=== PATIENT | male | born 1985 | race Caucasian/White ===

== ENCOUNTER → 2020-09-03 | Outpatient (CLI) | payer OTHER ==
--- NOTE | 2020-09-09 07:21 | SLEEPHOME ---
DATE: 09/03/2020 ORDERED BY: Payton Land NP Diagnostic home sleep testing was performed due to concern for the obstructive sleep apnea syndrome in this patient with a prior history of obstructive sleep apnea who has accomplished weight loss. For testing, a nocturnal T3 respiratory monitoring device was used. Continuous record was made of pulse, oxygen saturation, air flow, chest and abdominal strain, and body position. Nine hours and 59 minutes of data were reviewed. There were 7 hours and 25 minutes marked as time in bed. During the interval marked time in bed, there were 44 respiratory events identified of 10 seconds in duration or greater. The events were not postural. They were obstructive with 12 mixed and central apneas included. Baseline pulse rate was 54 beats per minute. Pulse rate ranged 44 to 86. Baseline saturation was 94%. Saturations were seen to 90%. Testing was performed in both the supine and nonsupine positions. IMPRESSION: Abnormal home sleep testing with repetitive respiratory events and oxygen desaturations to 90% with a respiratory event index of 5.9 is consistent with the obstructive sleep apnea syndrome. RECOMMENDATION: The patient should be encouraged to undergo a formal sleep evaluation. MTDD
== END ==
LOC: M SLEEP HO 11:27
PROVIDERS: ATTEND Nurse Practitioner Adult Health
DX: G47.33 Obstructive sleep apnea (adult) (pediatric) (principal)

== ENCOUNTER → 2022-12-30 | Outpatient (CLI) | payer BC | LOC: M RAD 09:54 | PROVIDERS: ATTEND Physician Assistant | DX: I82.812 Embolism and thrombosis of superficial veins of left lower extremity (principal) ==

== ENCOUNTER → 2022-12-30 | Outpatient (CLI) | payer BC ==
[2022-12-30 12:54] LABS: ALBUMIN 4.1 G/DL (3.2-5.2); ALKALINE PHOSPHATASE 81 U/L (46-116); ALT/SGPT 36 U/L (7.0-40); AST/SGOT 20 U/L (<34); BILIRUBIN,TOTAL 0.7 MG/DL (0.3-1.2); BLOOD UREA NITROGEN 17 MG/DL (9-23); CALCIUM LEVEL 9.4 MG/DL (8.5-10.1); CARBON DIOXIDE LEVEL 28 MMOL/L (20-31); CHLORIDE LEVEL 101 MMOL/L (98-107); CREATININE FOR GFR 0.84 MG/DL (0.70-1.30); GLOMERULAR FILTRATION RATE > 60.0 (>60); GLUCOSE, FASTING 91 MG/DL (60-100); POTASSIUM SERUM 4.5 MMOL/L (3.5-5.1); SODIUM LEVEL 139 MMOL/L (136-145); TOTAL PROTEIN 7.3 G/DL (5.7-8.2)
== END ==
LOC: M WUC 09:20
PROVIDERS: ATTEND Internal Medicine
DX: I10 Essential (primary) hypertension (principal)

== ENCOUNTER → 2022-12-30 | Outpatient (CLI) | payer BC | LOC: M WUC 09:22 | PROVIDERS: ATTEND Physician Assistant | DX: S43.491A Other sprain of right shoulder joint, initial encounter (principal); X58.XXXA Exposure to other specified factors, initial encounter; Y92.9 Unspecified place or not applicable ==

== ENCOUNTER → 2023-12-25 | Outpatient (CLI) | payer BC | LOC: M PLAIMG 07:08 | PROVIDERS: ATTEND Physician Assistant | DX: M75.31 Calcific tendinitis of right shoulder (principal) ==

== ENCOUNTER 2024-11-25 10:22 | Emergency (ER) | payer BC ==
[~2024-11-25] VITALS: Ht 172.7 cm; Wt 138.6 kg
[2024-11-25] MEDS ORDERED: LISI5TAB11 (10:36)
[2024-11-25 11:19] LABS: BASO # 0.1 10^3/uL (0.0-0.2); EOS # 0.5 10^3/uL (0.0-0.5); EOS % 6.5 % (0.0-3.0); HEMATOCRIT 37.6 % (42.0-52.0); HEMOGLOBIN 11.9 g/dl (13.5-17.5); LYMPH # 2.2 10^3/uL (1.5-5.0); LYMPH % 27.3 % (24.0-44.0); MEAN CORPUSCULAR HEMOGLOBIN 25.7 pg (27.0-33.0); MEAN CORPUSCULAR HGB CONC 31.6 g/dl (32.0-36.5); MEAN CORPUSCULAR VOLUME 81.2 fl (80.0-96.0); MONO # 0.9 10^3/uL (0.0-0.8); MONO % 11.3 % (2.0-8.0); NEUTROPHILS # 4.3 10^3/uL (1.5-8.5); NEUTROPHILS % 53.4 % (36.0-66.0); PLATELET COUNT, AUTOMATED 227 10^3/uL (150-450); RED BLOOD COUNT 4.63 10^6/uL (4.30-6.10); WHITE BLOOD COUNT 8.1 10^3/uL (4.0-10.0)
[2024-11-25 11:36] LABS: INR 1.03; PARTIAL THROMBOPLASTIN TIME 23.6 SECONDS (24.8-34.2); PROTHROMBIN TIME 13.8 SECONDS (12.5-14.5)
[2024-11-25 11:55] LABS: ALBUMIN 3.4 G/DL (3.2-5.2); ALKALINE PHOSPHATASE 93 U/L (40-129); ALT/SGPT 27 U/L (7.0-40); AST/SGOT 21 U/L (<34); BILIRUBIN,DIRECT 0.2 MG/DL (<0.4); BILIRUBIN,TOTAL 0.5 MG/DL (0.3-1.2); BLOOD UREA NITROGEN 15 MG/DL (9-23); CALCIUM LEVEL 8.9 MG/DL (8.5-10.1); CARBON DIOXIDE LEVEL 25 MMOL/L (20-31); CHLORIDE LEVEL 111 MMOL/L (98-107); CREATININE FOR GFR 0.79 MG/DL (0.70-1.30); GLOMERULAR FILTRATION RATE > 60.0 (>60); GLUCOSE, FASTING 95 MG/DL (60-100); POTASSIUM SERUM 4.6 MMOL/L (3.5-5.1); SODIUM LEVEL 141 MMOL/L (136-145)
[2024-11-25] MEDS ORDERED: ISOVUE-370 76% 100ML VIAL As Ordered ONE (12:02)
[2024-11-25] MEDS ORDERED: XARE20TA PO (15:34)
[2024-11-25] MEDS: RIVAROXABAN 20MG TAB (XARELTO) PO ONE (15:55)
[2024-11-25 15:57] VITALS: BP 148/77; TEMP 96.1; O2SAT 96
== END 2024-11-25 16:04 | disposition home or self-care (01) ==
LOC: M ED 10:22
DX: I26.99 Other pulmonary embolism without acute cor pulmonale (principal); I82.401 Acute embolism and thrombosis of unspecified deep veins of right lower extremity; I10 Essential (primary) hypertension
CPT/HCPCS: 71275; 80048; 80076; 85025; 85610; 85730; 93971; 99284; Q9967

== ENCOUNTER → 2024-11-25 | Outpatient (CLI) | payer BC ==
[~2024-11-25] MED LIST: LISI5TAB11; XARE20TA PO
== END ==
LOC: M RAD 09:11
PROVIDERS: ATTEND Student in an Organized Health Care Education/Training Program
DX: I82.411 Acute embolism and thrombosis of right femoral vein (principal)

== ENCOUNTER 2024-12-25 05:59 | Emergency (ER) | payer BC ==
[~2024-12-25] VITALS: Ht 172.7 cm; Wt 136.1 kg
[2024-12-25 10:49] VITALS: BP 139/77; TEMP 97.4; O2SAT 97
== END 2024-12-25 10:53 | disposition home or self-care (01) ==
LOC: M ED 05:59
DX: I82.401 Acute embolism and thrombosis of unspecified deep veins of right lower extremity (principal); I10 Essential (primary) hypertension; Z86.718 Personal history of other venous thrombosis and embolism; Z86.711 Personal history of pulmonary embolism; F17.290 Nicotine dependence, other tobacco product, uncomplicated